=== PATIENT | male | born 1990 | race African-American/Black ===

== ENCOUNTER 2017-06-06 10:37 | Emergency (ER) | payer OTHER ==
[~2017-06-06] VITALS: Ht 175.3 cm; Wt 80.7 kg
--- NOTE | ~2017-06-06 | CR127 ---
[facility] A Service of [facility] & [facility] / [facility] RADIOLOGY TEXT RESULTS PATIENT: DARLYN MARVIN LOCATION: CFTX : [birth year] UNIT #: [id number] AGE: [address]: PARK BALL SEX: M ORDER DR: [id number] [facility] [address] [place], [place] [address] [id number] E MR#: [id number] Acc #: [id number] NAME: DARLYN MARVIN : 1990 SEX: M STUDY DATE/TIME: 06/06/2017 13:15 UNIT: [facility] ROOM: STUDY DESCRIPTION: CR Foot Complete Min 3 View Rt Attending Physician: Park Ball Aprn Ordering Physician: Park Ball Aprn Primary Care Physician: [facility] MEDICAL IMAGING REPORT This report is preliminary unless electronic signature is present EXAM Right foot 06/06 INDICATION Foot pain in the great toe after hitting toe on bathtub last night. FINDINGS The tarsal, metatarsal, and phalangeal elements are all anatomically normal in position and alignment. There are no articular defects. No fractures or radiopaque foreign bodies in the soft tissues are apparent. IMPRESSION Normal foot. Dictated by... Calixto James Jr., M.D. THIS IS AN ELECTRONICALLY VERIFIED REPORT Calixto James Jr., M.D. at 06/07/2017 6:37 AM DUANEK/[place] TD: 06/06/2017 15:07 JOB #: [id number] MEDICAL IMAGING REPORT Page 1 of 1 COPY
== END 2017-06-06 14:09 | disposition home or self-care (01) ==
LOC: CFTX 10:37 → CED 10:37 → CFTX 12:43
DX: M10.9 Gout, unspecified (principal); F17.210 Nicotine dependence, cigarettes, uncomplicated; Z91.013 Allergy to seafood
CPT/HCPCS: 73630; 99283